=== PATIENT | male | born 1995 | race Two or more races ===

== ENCOUNTER 2017-05-11 18:18 | Inpatient (IN) | payer MEDICAID, OTHER ==
[~2017-05-11] VITALS: Ht 170.2 cm; Wt 92.0 kg
[2017-05-11 18:38] VITALS: BP 117/70
[2017-05-11] MEDS ORDERED: MORPHINE SULFATE 4 MG/ML SYRG IV ONE (19:00)
[2017-05-11] MEDS ORDERED: ONDANSETRON HCL 4 MG/2 ML VIAL IV ONE (19:00)
[2017-05-11 19:23] LABS: Allen Test Modified; Base Excess -1.4 mmol/L (-2.0-2.0); Blood COHb 0.1 % (0.5-1.5); Blood MetHb 0.3 % (0.0-1.5); MODE VENT - PCV; O2Hb 97.6 % (94.0-97.0); PCO2 26.1 mmHg (35.0-45.0); PCO2(T) 26.1 mmHg (35.0-45.0); PO2 120.8 mmHg (80.0-100.0); PO2(T) 120.8 mmHg (80.0-100.0); Sample Type Arterial; Spont Vt 540; pH 7.503 (7.350-7.450)
[2017-05-11 20:07] LABS: Albumin 3.5 g/dL (3.4-5.0); Calcium 8.7 mg/dL (8.5-10.1); Potassium 3.8 mmol/L (3.5-5.1)
[2017-05-11 20:08] VITALS: BP 101/72
[2017-05-11 20:09] LABS: Bilirubin, Total 0.4 mg/dL (0.2-1.0); Total Protein 7.9 g/dL (6.4-8.2)
[2017-05-11 20:19] LABS: Basophils # (auto) 0 uL; Basophils % (auto) 0.5 % (0.0-2.0); CONDITION Y; DEFINITIVE SEE PRINTOUT; Eosinophils # (auto) 0.1 uL; Eosinophils % (auto) 1.8 % (0.0-7.0); Hematocrit 43.9 % (41.0-53.0); Hemoglobin 14.5 g/dL (13.5-17.5); Lymphocytes % (auto) 25.6 % (10.0-50.0); Mean Corpuscular Hemoglobin 25.2 pg (28.0-32.0); Mean Corpuscular Hgb Conc. 33.1 g/dL (32.0-36.0); Mean Corpuscular Volume 76.3 fL (80.0-100.0); Mean Platelet Volume 9.6 fL (7.4-10.4); Monocytes # (auto) 0.3 uL; Monocytes % (auto) 3.6 % (0.0-12.0); Neutrophils # (auto) 5.3 uL; Neutrophils % (auto) 68.5 % (37.0-80.0); Platelet Count (auto) 373 10^3/uL (140-450); Red Cell Distribution Width 15.1 % (11.6-16.0); White Blood Cell 7.7 10^3/uL (4.4-10.8)
[2017-05-11 21:38] LABS: Platelet Estimate Adequate; RBC Morphology Normal
[2017-05-11 22:19] VITALS: BP 121/68
[2017-05-11] MEDS ORDERED: NITROGLYCERIN 0.4 MG SL TAB SL PRN (23:30)
[2017-05-11] MEDS ORDERED: ACETAMINOPHEN 325 MG TAB PO PRN (23:30)
[2017-05-11] MEDS ORDERED: ONDANSETRON HCL 4 MG/2 ML VIAL IV PRN (23:30)
[2017-05-11] MEDS ORDERED: HYDROcodone-ACET 5/325MG TAB PO PRN (23:30)
[2017-05-12] VITALS (10 sets, daily range): BP systolic 108–125; BP diastolic 67–86
[2017-05-12] MEDS: MORPHINE SULF INJ 2 MG/ML SYRINGE 1ML IV PRN ×5 (01:15→22:37)
[2017-05-12 04:39] LABS: Basophils # (auto) 0.2 uL; Basophils % (auto) 1.7 % (0.0-2.0); CONDITION Y; DEFINITIVE SEE PRINTOUT; Eosinophils # (auto) 0.2 uL; Eosinophils % (auto) 2.7 % (0.0-7.0); Hematocrit 39.8 % (41.0-53.0); Hemoglobin 13.2 g/dL (13.5-17.5); Lymphocytes # (auto) 2.6 uL; Lymphocytes % (auto) 30.3 % (10.0-50.0); Mean Corpuscular Hemoglobin 25.2 pg (28.0-32.0); Mean Corpuscular Hgb Conc. 33.1 g/dL (32.0-36.0); Mean Platelet Volume 9.3 fL (7.4-10.4); Monocytes # (auto) 0.6 uL; Monocytes % (auto) 6.7 % (0.0-12.0); Neutrophils # (auto) 5.1 uL; Neutrophils % (auto) 58.6 % (37.0-80.0); Platelet Count (auto) 345 10^3/uL (140-450); Red Cell Distribution Width 15.1 % (11.6-16.0); White Blood Cell 8.7 10^3/uL (4.4-10.8)
[2017-05-12 06:16] LABS: BUN/Creatinine Ratio 66.7
[2017-05-12 06:17] LABS: BUN/Creatinine Ratio 66.7; Potassium 4.3 mmol/L (3.5-5.1)
[2017-05-12 06:19] LABS: Albumin 3.3 g/dL (3.4-5.0); Bilirubin, Total 0.4 mg/dL (0.2-1.0); Calcium 8.6 mg/dL (8.5-10.1); Total Protein 6.9 g/dL (6.4-8.2)
[2017-05-12] MEDS: IPRATROPIUM BROM 0.5 MG/2.5ML INH SOL NEB PRN ×2 (06:55→10:39)
[2017-05-12] MEDS: BUDESONIDE (INHALATION) 0.5 MG/2 ML NEB NEB SCH ×2 (06:55→21:58)
[2017-05-12] MEDS: ALBUTEROL SULF 2.5 MG/0.5ML(0.5%) NEB SOLN NEB PRN ×2 (06:55→10:38)
[2017-05-12] MEDS: ENOXAPARIN SOD 40 MG/0.4 ML SYRINGE SC SCH (10:00)
[2017-05-12] MEDS: METOPROLOL SUCCINATE XL 50 MG TAB PO SCH (10:04)
[2017-05-12] MEDS: FAMOTIDINE 20 MG TAB PO SCH ×3 (10:04→22:36)
[2017-05-12] MEDS: DOCUSATE SOD 100 MG CAP PO SCH ×2 (10:04→22:36)
[2017-05-12] MEDS ORDERED: SODIUM CHLORIDE 0.9 % NEB SOLN 3ML NEB ONE (10:16)
[2017-05-13] MEDS: MORPHINE SULF INJ 2 MG/ML SYRINGE 1ML IV PRN ×3 (03:16→12:54)
[2017-05-13 05:30] VITALS: BP 118/75
[2017-05-13] MEDS: BUDESONIDE (INHALATION) 0.5 MG/2 ML NEB NEB SCH (06:19)
[2017-05-13 09:09] VITALS: BP_SYST 122; BP_SYST 164; BP_DIAS 69; BP_DIAS 98
[2017-05-13] MEDS: ENOXAPARIN SOD 40 MG/0.4 ML SYRINGE SC SCH (12:36)
[2017-05-13] MEDS: METOPROLOL SUCCINATE XL 50 MG TAB PO SCH (12:36)
[2017-05-13] MEDS: DOCUSATE SOD 100 MG CAP PO SCH (12:37)
[2017-05-13] MEDS: FAMOTIDINE 20 MG TAB PO SCH (12:37)
[2017-05-13 13:00] VITALS: BP 126/69
[2017-05-13] MEDS ORDERED: DOPamine 1600MCG/ML 250 ML IV ONE (15:27)
== END 2017-05-13 17:40 | disposition home or self-care (01) | DRG 143 ==
LOC: ER 18:37 → TELE 18:38 → EDBD 18:38 → TELE-CENTR 05-12 05:35
PROVIDERS: ADMIT Nurse Practitioner; ATTEND Internal Medicine
PROC: 5A1945Z Respiratory Ventilation, 24-96 Consecutive Hours (ICD-10-PCS; principal; 2017-05-11)
DX: J95.03 Malfunction of tracheostomy stoma (principal); J96.10 Chronic respiratory failure, unspecified whether with hypoxia or hypercapnia; G71.0 Muscular dystrophy; R53.2 Functional quadriplegia; I08.0 Rheumatic disorders of both mitral and aortic valves; E66.01 Morbid (severe) obesity due to excess calories; I10 Essential (primary) hypertension; J98.11 Atelectasis; Z68.35 Body mass index [BMI] 35.0-35.9, adult
CPT/HCPCS: 36415; 36600; 71010; 80053; 82805; 84484; 85025; 87040; 87070; 87077; 87186; 87205; 93005; 94002; 94003; 94640; 96374; 96375; 96376; J2405

== ENCOUNTER 2017-07-14 16:08 | Emergency (ER) | payer OTHER, MEDICAID ==
[~2017-07-14] VITALS: Ht 162.6 cm; Wt 88.5 kg
[2017-07-14 17:56] LABS: Albumin 4.6 g/dL (3.4-5.0); BUN/Creatinine Ratio 53.3; Bilirubin, Total 0.5 mg/dL (0.2-1.0); Calcium 9.5 mg/dL (8.5-10.1); Potassium 4.2 mmol/L (3.5-5.1); Total Protein 9.9 g/dL (6.4-8.2)
[2017-07-14 18:05] LABS: Basophils # (auto) 0.1 uL; Eosinophils # (auto) 0.2 uL; Nucleated Red Blood Cells % 0.2 %
[2017-07-14 18:12] LABS: Basophils % (auto) 0.6 % (0.0-2.0); Eosinophils % (auto) 1.7 % (0.0-7.0); Hematocrit 47.3 % (41.0-53.0); Hemoglobin 15.5 g/dL (13.5-17.5); Lymphocytes # (auto) 2.4 uL; Lymphocytes % (auto) 18.6 % (10.0-50.0); Mean Corpuscular Hemoglobin 24.8 pg (28.0-32.0); Mean Corpuscular Hgb Conc. 32.7 g/dL (32.0-36.0); Mean Corpuscular Volume 75.8 fL (80.0-100.0); Mean Platelet Volume 8.5 fL (6.9-10.8); Monocytes # (auto) 0.6 uL; Monocytes % (auto) 4.5 % (0.0-12.0); Neutrophils # (auto) 9.5 uL; Neutrophils % (auto) 74.6 % (37.0-80.0); Platelet Count (auto) 485 10^3/uL (140-450); Red Cell Distribution Width 15.1 % (11.8-14.3); White Blood Cell 12.7 10^3/uL (4.4-10.8)
[2017-07-14] MEDS ORDERED: HYDROmorphone HCL 2 MG/ML VL IV ONE (19:00)
[2017-07-14] MEDS ORDERED: ONDANSETRON HCL 4 MG/2 ML VIAL IV ONE ×2 (19:00→23:15)
[2017-07-14 21:05] LABS: Anisocytosis Slight; Platelet Estimate Increased
[2017-07-14 21:06] LABS: Hypochromia Moderate
[2017-07-14 22:28] LABS: Urine RBC None Seen /hpf (0 - 3)
[2017-07-14 22:47] LABS: Urine Bilirubin Negative (Negative); Urine Blood Negative /uL (Negative); Urine Color Yellow (Yellow); Urine Glucose Normal (Normal); Urine Granular Cast FEW /lpf (0); Urine Hyaline Cast FEW /lpf (0 - 2); Urine Ketone 4+ (Negative); Urine Mucus FEW (None Seen); Urine Nitrite Negative (Negative); Urine Squamous Epithelial Cell FEW /hpf (<5); Urine Urobilinogen Normal (Negative); Urine pH 5.5 (5.0-8.0)
[2017-07-14 23:52] VITALS: BP 126/85
== END 2017-07-15 01:41 | disposition left against medical advice (07) ==
LOC: EDBD 16:08 → ER 16:08
DX: R06.02 Shortness of breath (principal); I10 Essential (primary) hypertension; G71.0 Muscular dystrophy; Z93.0 Tracheostomy status
CPT/HCPCS: 36415; 71010; 80053; 81001; 83605; 85025; 87040; 96374; 96375; 96376; 99285; J1170; J2405